=== PATIENT | female | born 1965 | race Caucasian/White ===

== ENCOUNTER 2017-06-20 23:37 | Emergency (ER) | payer BC ==
[2017-06-20 23:49] VITALS: BP 142/72
[2017-06-21] MEDS ORDERED: Famotidine 20 MG Tab PO ONE (00:03)
[2017-06-21] MEDS ORDERED: Dicyclomine 10 MG Cap PO ONE (00:04)
[2017-06-21] MEDS ORDERED: Aluminum Hydroxide/Magnesium Hydroxide/Simethicone Susp 30 ML Cup PO ONE ×2 (00:04→01:15)
--- NOTE | 2017-06-21 01:07 | EDM.PDOC ---
ED HPI GENERAL MEDICAL PROBLEM - General Chief Complaint: Abdominal Pain Stated Complaint: ABDOMINAL PAINS Time Seen by Provider: 06/20/17 23:48 Source of Information: Reports: Patient History Limitations: Reports: No Limitations - History of Present Illness INITIAL COMMENTS - FREE TEXT/NARRATIVE: The patient presents with epigastric abdominal pain that radiates to her back. She has a history of this with polyps in her gallbladder and reflux. She ran out of her medications for a few days. She has been under lots of stress caring for her grandchildren and she ate some ice cream tonight and after that she had more pain. The pain radiates to her back. She has no nausea or vomiting with it. She has no fever, chills, chest pain, shortness of breath or dysuria. Onset: Sudden Duration: Hour(s): (8pm tonight) Location: Reports: Abdomen (epigastric region) Quality: Reports: Burning Severity: Moderate Improves with: Reports: None Worsens with: Reports: None Context: Reports: Activity (after she ate some ice cream) Associated Symptoms: Reports: No Other Symptoms Upper Abdomen Pain Score (Numeric/FACES): 7 - Related Data Allergies Allergy/AdvReac Type Severity Reaction Status Date / Time No Known Drug Allergies Allergy Unknown Other Verified 06/20/17 23:44 Home Meds: Home Meds Omeprazole Magnesium [Prilosec Otc] 20 mg PO DAILY 12/20/16 [History] Citalopram Hydrobromide [Celexa] 10 mg PO DAILY 06/20/17 [History] Past Medical History HEENT History: Reports: Impaired Vision Gastrointestinal History: Reports: GERD, Irritable Bowel Syndrome, Other (See Below) Other Gastrointestinal History: gallbladder attacks Musculoskeletal History: Reports: Other (See Below) Other Musculoskeletal History: fracture to left elbow Psychiatric History: Reports: Anxiety - Past Surgical History HEENT Surgical History: Reports: None GI Surgical History: Reports: None Musculoskeletal Surgical History: Reports: None Social & Family History - Family History Family Medical History: Noncontributory - Tobacco Use Smoking Status *Q: Never Smoker - Caffeine Use Caffeine Use: Reports: Coffee, Soda, Tea - Recreational Drug Use Recreational Drug Use: No ED ROS GENERAL - Review of Systems Review Of Systems: See Below Constitutional: Reports: No Symptoms HEENT: Reports: No Symptoms Respiratory: Reports: No Symptoms Cardiovascular: Reports: No Symptoms Endocrine: Reports: No Symptoms GI/Abdominal: Reports: Abdominal Pain. Denies: Diarrhea, Nausea, Vomiting : Reports: No Symptoms Musculoskeletal: Reports: No Symptoms Skin: Reports: No Symptoms Neurological: Reports: No Symptoms ED EXAM, GI/ABD - Physical Exam Exam: See Below Exam Limited By: No Limitations General Appearance: Alert, No Apparent Distress Ears: Normal External Exam Nose: Normal Inspection Throat/Mouth: Normal Inspection Head: Atraumatic, Normocephalic Neck: Normal Inspection Respiratory/Chest: No Respiratory Distress, Lungs Clear, Normal Breath Sounds Cardiovascular: Regular Rate, Rhythm, No Edema, No Murmur GI/Abdominal Exam: Soft, No Organomegaly, No Mass, Tender (Mild pain upon palpation to the epigastric area) Course - Vital Signs Last Recorded V/S: Last Vital Signs Temp 97.2 F 06/20/17 23:45 Pulse 76 06/20/17 23:45 Resp 19 06/20/17 23:45 BP 142/72 H 06/20/17 23:45 Pulse Ox 99 06/20/17 23:45 - Orders/Labs/Meds Orders: Active Orders 24 hr Category Date Time Status EKG Documentation Completion [RC] ASDIRECTED Care 06/21/17 01:14 Active Abdomen Ltd [US] Stat Exams 06/21/17 01:15 Taken EKG 12 Lead [EK] Stat Ther 06/21/17 01:14 Ordered Labs: Laboratory Tests 06/21/17 06/21/17 06/21/17 Range/Units 00:18 00:18 00:48 WBC 8.90 (3.98-10.04) K/mm3 RBC 4.85 (3.98-5.22) M/mm3 Hgb 11.1 L (11.2-15.7) gm/L Hct 35.6 (34.1-44.9) % MCV 73.4 L (79.4-94.8) fl MCH 22.9 L (25.6-32.2) pg MCHC 31.2 L (32.2-35.5) g/dl RDW Std Deviation 55.3 H (36.4-46.3) fL Plt Count 255 (182-369) K/mm3 MPV 9.9 (9.4-12.3) fl Neut % (Auto) 55.1 (34.0-71.1) % Lymph % (Auto) 33.9 (19.3-51.7) % [place] % (Auto) 8.8 (4.7-12.5) % Eos % (Auto) 1.8 (0.7-5.8) Baso % (Auto) 0.3 (0.1-1.2) % Neut # (Auto) 4.90 (1.56-6.13) K/mm3 Lymph # (Auto) 3.02 (1.18-3.74) K/mm3 [place] # (Auto) 0.78 H (0.24-0.36) K/mm3 Eos # (Auto) 0.16 (0.04-0.36) K/mm3 Baso # (Auto) 0.03 (0.01-0.08) K/mm3 Manual Slide Review Abnormal smear Sodium 142 (136-145) mEq/L Potassium 4.0 (3.5-5.1) mEq/L Chloride 106 (98-107) mEq/L Carbon Dioxide 27 (21-32) mEq/L Anion Gap 13.0 (5-15) BUN 18 (7-18) mg/dL Creatinine 0.9 (0.55-1.02) mg/dL Est Cr Clr Drug Dosing 67.67 mL/min Estimated GFR (MDRD) > 60 (>60) mL/min BUN/Creatinine Ratio 20.0 H (14-18) Glucose 92 (74-106) mg/dL Calcium 9.4 (8.5-10.1) mg/dL Total Bilirubin 0.2 (0.2-1.0) mg/dL AST 12 L (15-37) U/L ALT 26 (14-59) U/L Alkaline Phosphatase 54 (46-116) U/L Troponin I < 0.017 (0.00-0.056) ng/mL Total Protein 7.3 (6.4-8.2) g/dl Albumin 3.5 (3.4-5.0) g/dl Globulin 3.8 gm/dL Albumin/Globulin Ratio 0.9 L (1-2) Lipase 299 (73-393) U/L Meds: Medications Discontinued Medications Generic Name Dose Route Start Last Admin Trade Name Freq PRN Reason Stop Dose Admin Al Hydroxide/Mg Hydroxide 30 ml 06/21/17 00:04 06/21/17 00:13 Mag-Al Plus PO 06/21/17 00:05 30 ml ONETIME ONE Administration Al Hydroxide/Mg Hydroxide 30 ml 06/21/17 01:15 06/21/17 01:33 Mag-Al Plus PO 06/21/17 01:16 30 ml ONETIME ONE Administration Dicyclomine HCl 10 mg 06/21/17 00:04 06/21/17 00:12 Bentyl PO 06/21/17 00:05 10 mg ONETIME ONE Administration Famotidine 20 mg 06/21/17 00:03 06/21/17 00:13 Pepcid PO 06/21/17 00:04 20 mg ONETIME ONE Administration Hyoscyamine 0.125 mg 06/21/17 01:17 06/21/17 01:33 Hyomax-Sl SL 06/21/17 01:18 0.125 mg ONETIME ONE Administration - Re-Assessments/Exams Free Text/Narrative Re-Assessment/Exam: 06/21/17 01:07 I ordered labs, maalox, bentyl, and pepcid. 06/21/17 01:08 Her CBC and CMP look good. Her lipase was normal. 06/21/17 02:38 She did not feel much better. I ordered an EKG that showed a NSR with no acute changes. I also ordered an US and it showed no acute findings. Suspect small gallbladder polyps versus small stones. I also gave her more maalox and some hyosyamine. That did help some. Her troponin is negative. I will have her continue her prilosec and follow up with Dr Armas. Departure - Departure Time of Disposition: 14:40 Disposition: Home, Self-Care 01 Condition: Good Clinical Impression: Reflux esophagitis Abdominal pain Qualifiers: Abdominal location: epigastric Qualified Code(s): R10.13 - Epigastric pain Cholelithiasis Qualifiers: Cholelithiasis location: gallbladder Cholecystitis presence: without cholecystitis Biliary obstruction: without biliary obstruction Qualified Code(s) : K80.20 - Calculus of gallbladder without cholecystitis without obstruction - Discharge Information Referrals: Marck Murphy MD [Primary Care Provider] - Jah Armas MD [Physician] - Forms: ED Department Discharge Additional Instructions: Continue taking your prilosec. Follow up with Dr Armas to discuss getting a scope and about your gallbladder. Please return if you are worse. - My Orders Last 24 Hours: My Active Orders 06/21/17 01:14 EKG Documentation Completion [RC] ASDIRECTED EKG 12 Lead [EK] Stat 06/21/17 01:15 Abdomen Ltd [US] Stat - Assessment/Plan Last 24 Hours: My Active Orders 06/21/17 01:14 EKG Documentation Completion [RC] ASDIRECTED EKG 12 Lead [EK] Stat 06/21/17 01:15 Abdomen Ltd [US] Stat
[2017-06-21] MEDS ORDERED: Hyoscyamine 0.125 MG Tab.SL SL ONE (01:17)
--- NOTE | 2017-06-21 08:12 | US ---
Limited abdominal ultrasound: Multiple real-time images of the upper right abdomen are obtained. Comparison: No prior abdominal imaging. Liver shows no focal parenchymal abnormality. Small intraluminal abnormality seen within the gallbladder believed to represent a small gallbladder polyp. No shadowing gallstones are seen. No gallbladder wall thickening or biliary duct dilatation is seen. Right kidney shows no hydronephrosis or mass. Right kidney measures 11.4 cm in size. Visualized portions of the pancreas are within normal limits. Impression: 1. Findings felt compatible with small gallbladder polyp. No shadowing gallstones are seen. No gallbladder wall thickening or biliary duct dilatation is seen. 2. Other portions of the right upper quadrant abdominal ultrasound are within normal limits. Diagnostic code #3 I agree with preliminary report issued by [facility] ([facility] report finalized on 06/21/17, 3:15 AM Central Time)
== END 2017-06-21 02:50 | disposition home or self-care (01) ==
LOC: JD.ED 23:37
DX: K80.20 Calculus of gallbladder without cholecystitis without obstruction (principal); K21.0 Gastro-esophageal reflux disease with esophagitis; F41.9 Anxiety disorder, unspecified; Z79.899 Other long term (current) drug therapy
CPT/HCPCS: 36415; 76705; 80053; 83690; 84484; 85025; 93005; 99284; A9270; 99283